=== PATIENT | male | born 1950 | race Caucasian/White ===

== ENCOUNTER 2023-03-06 21:52 | Observation (INO) | payer OTHER ==
[~2023-03-06] VITALS: Ht 170.2 cm; Wt 71.9 kg
[2023-03-06 22:28] LABS: BASOPHILS ABSOLUTE AUTO 0.06 K/mm3 (0.00-0.23); BASOPHILS PERCENT AUTO 1 % (0-2); EOSINOPHILS ABSOLUTE AUTO 0.17 K/mm3 (0.00-0.68); EOSINOPHILS PERCENT AUTO 2 % (0-6); Hematocrit 43.9 % (37.0-53.0); Hemoglobin 14.7 g/dL (13.5-17.5); IMMATURE GRAN ABSOLUTE AUTO 0.05 K/mm3 (0.00-0.10); IMMATURE GRAN PERCENT AUTO 1 % (0-1); LYMPHOCYTES PERCENT AUTO 12 % (21-46); MONOCYTES ABSOLUTE AUTO 0.83 K/mm3 (0.16-1.47); MONOCYTES PERCENT AUTO 9 % (4-13); Mean Corpuscular HGB 29.9 pg (26.0-34.0); Mean Corpuscular HGB Conc 33.5 g/dL (31.5-36.5); Mean Corpuscular Volume 89 fL (80-100); Mean Platelet Volume 10.5 fL (9.1-12.4); NEUTROPHILS ABSOLUTE AUTO 7.18 K/mm3 (1.96-9.15); NEUTROPHILS PERCENT AUTO 77 % (41-73); Platelet Count 232 K/mm3 (150-400); RDW Standard Deviation 42.4 fL (35.1-46.3); Red Blood Cell Count 4.91 M/mm3 (4.30-5.90); White Blood Cell Count 9.39 K/mm3 (4.00-11.30)
[2023-03-06 22:42] LABS: Albumin, Blood 3.4 g/dL (3.4-5.0); Albumin/Globulin Ratio 0.8 (0.8-1.8); Bilirubin, Total 0.3 mg/dL (0.1-1.0); Bun/Creatinine Ratio 14.5 (12.0-20.0); Calcium, Blood 8.8 mg/dL (8.5-10.1); Creatinine, Blood 0.9 mg/dL (0.60-1.20); Globulin, Blood 4.2 g/dL (2.2-4.0); Potassium, Blood 4.1 mmol/L (3.5-5.5); Total Protein, Blood 7.6 g/dL (6.4-8.2)
[2023-03-07 02:47] VITALS: BP 115/97
[2023-03-07] MEDS ORDERED: METO50ER PO (02:51)
[2023-03-07] MEDS ORDERED: Prinivil10 MG PO (02:52)
[2023-03-07] MEDS ORDERED: Prednisone10 MG PO (02:53)
[2023-03-07] MEDS ORDERED: Zocor20 MG PO (02:53)
[2023-03-07] MEDS ORDERED: CENTRUM SILVER1 EAC2 PO (02:54)
[2023-03-07] MEDS ORDERED: Aspir 8181 MG PO (02:54)
[2023-03-07] MEDS ORDERED: ALBU90OI INH (02:55)
[2023-03-07] MEDS ORDERED: STIOLTO RESPIMAT4 G1 INH (02:56)
[2023-03-07 03:17] LABS: BASOPHILS ABSOLUTE AUTO 0.03 K/mm3 (0.00-0.23); BASOPHILS PERCENT AUTO 0 % (0-2); EOSINOPHILS ABSOLUTE AUTO 0.01 K/mm3 (0.00-0.68); EOSINOPHILS PERCENT AUTO 0 % (0-6); Hematocrit 42.6 % (37.0-53.0); Hemoglobin 14.2 g/dL (13.5-17.5); IMMATURE GRAN ABSOLUTE AUTO 0.04 K/mm3 (0.00-0.10); IMMATURE GRAN PERCENT AUTO 0 % (0-1); LYMPHOCYTES ABSOLUTE AUTO 0.35 K/mm3 (0.84-5.20); LYMPHOCYTES PERCENT AUTO 3 % (21-46); MONOCYTES ABSOLUTE AUTO 0.11 K/mm3 (0.16-1.47); MONOCYTES PERCENT AUTO 1 % (4-13); Mean Corpuscular HGB 29.6 pg (26.0-34.0); Mean Corpuscular HGB Conc 33.3 g/dL (31.5-36.5); Mean Corpuscular Volume 89 fL (80-100); Mean Platelet Volume 10.3 fL (9.1-12.4); NEUTROPHILS ABSOLUTE AUTO 11.26 K/mm3 (1.96-9.15); NEUTROPHILS PERCENT AUTO 95 % (41-73); Platelet Count 220 K/mm3 (150-400); RDW Coefficient Variation 12.9 % (11.7-14.2); RDW Standard Deviation 42.4 fL (35.1-46.3); Red Blood Cell Count 4.79 M/mm3 (4.30-5.90)
[2023-03-07 03:38] LABS: Albumin, Blood 3.4 g/dL (3.4-5.0); Albumin/Globulin Ratio 0.8 (0.8-1.8); Bilirubin, Total 0.3 mg/dL (0.1-1.0); Bun/Creatinine Ratio 14.2 (12.0-20.0); Calcium, Blood 8.9 mg/dL (8.5-10.1); Creatinine, Blood 0.78 mg/dL (0.60-1.20); Globulin, Blood 4.1 g/dL (2.2-4.0); Magnesium, Blood 2.1 mg/dL (1.6-2.4); Potassium, Blood 3.8 mmol/L (3.5-5.5); Total Protein, Blood 7.5 g/dL (6.4-8.2)
--- NOTE | 2023-03-07 06:02 | NUR ---
SHIFT SUMMARY REPORT FROM ED RN- PT BROUGHT TO ROOM VIA WC- SISTER IN ROOM- PT AMBULATED TO BR WITHOUT PROBLEMS- ADMIT ASSESSMENT DONE- INFUSED AZITHROMYCIN AND FOLIC ACID AND THIAMINE WITHOUT PROBLEMS, BED LOW POSITION, CALL LIGHT WITHIN REACH
[2023-03-07 08:31] VITALS: BP 130/62
--- NOTE | 2023-03-07 09:00 | NUR ---
PT DENIES ANY INFLAMMABLES IN POSESSION. MIN NECK PN R/T PINCHED NERVE PER PT. DENIES CHEST PAIN, OR PRESSURE. NO TELE. H/R REG, NO MURMUR NOTED. LUGS CLEAR UPPER, LOWER IS MODERATELY COARSE, ON R.A. RESP EASY, UNLABORED AT REST. BT X4 VOIDS INCEPENDANT TO BATHROOM. BED IN LOW POSITION, CALL LITE IN REACH, CALLS APPROP
[2023-03-07] MEDS ORDERED: AZIT250 PO (12:16)
[2023-03-07] MEDS ORDERED: ALBU2.5V5 INH (12:20)
[2023-03-07] MEDS ORDERED: LACT PO (15:14)
--- NOTE | 2023-03-07 15:42 | NUR ---
DISCHARGE REVIEWED WITH PT AND SISTER. PT VERBALIZED UNDERSTANDING MEDS AND INSTRUCT. SISTER PICKED UP MEDS ALREADY. IV PULLED INTACT. NO TELE . WHEELED TO DOOR BY AIDE AT 1530
[2023-03-08] MEDS ORDERED: HYDHCL25 PO (17:56)
== END 2023-03-07 15:34 | disposition home or self-care (01) ==
LOC: ER 21:52 → MEDS 21:53
PROVIDERS: Emergency Medicine; ADMIT Student in an Organized Health Care Education/Training Program
DX: J44.1 Chronic obstructive pulmonary disease with (acute) exacerbation (principal); R77.8 Other specified abnormalities of plasma proteins; I25.10 Atherosclerotic heart disease of native coronary artery without angina pectoris; F17.210 Nicotine dependence, cigarettes, uncomplicated; F10.20 Alcohol dependence, uncomplicated; F12.90 Cannabis use, unspecified, uncomplicated; R91.8 Other nonspecific abnormal finding of lung field; M54.2 Cervicalgia; G89.29 Other chronic pain; Z66 Do not resuscitate; I25.2 Old myocardial infarction
CPT/HCPCS: 36415; 71045; 80053; 83735; 84484; 85025; 93005; 93010; 94640; 94644; 94664; 94760; 96365; 96367; 96368; 96372; 96374; 99285-25; A9270; G0378; J0456; J1650; J2930; J3411; J7050; J7512

== ENCOUNTER 2023-06-06 13:28 | Inpatient (IN) | payer OTHER ==
[~2023-06-06] VITALS: Ht 177.8 cm; Wt 74.8 kg
[~2023-06-06 13:28] MED LIST: ALBU2.5V5 INH; ALBU90OI INH; AZIT250 PO; Aspir 8181 MG PO; CENTRUM SILVER1 EAC2 PO; HYDHCL25 PO; LACT PO; METO100ER PO; PRED5 PO; Prinivil10 MG PO; STIOLTO RESPIMAT4 G1 INH; Zocor20 MG PO
[2023-06-06 14:29] LABS: BASOPHILS ABSOLUTE AUTO 0.06 K/mm3 (0.00-0.23); BASOPHILS PERCENT AUTO 1 % (0-2); EOSINOPHILS ABSOLUTE AUTO 0.04 K/mm3 (0.00-0.68); EOSINOPHILS PERCENT AUTO 0 % (0-6); Hematocrit 46.7 % (37.0-53.0); Hemoglobin 15.3 g/dL (13.5-17.5); IMMATURE GRAN ABSOLUTE AUTO 0.04 K/mm3 (0.00-0.10); IMMATURE GRAN PERCENT AUTO 0 % (0-1); LYMPHOCYTES ABSOLUTE AUTO 0.79 K/mm3 (0.84-5.20); LYMPHOCYTES PERCENT AUTO 7 % (21-46); MONOCYTES ABSOLUTE AUTO 1.14 K/mm3 (0.16-1.47); MONOCYTES PERCENT AUTO 10 % (4-13); Mean Corpuscular HGB 28.7 pg (26.0-34.0); Mean Corpuscular HGB Conc 32.8 g/dL (31.5-36.5); Mean Corpuscular Volume 88 fL (80-100); Mean Platelet Volume 10.4 fL (9.1-12.4); NEUTROPHILS ABSOLUTE AUTO 8.91 K/mm3 (1.96-9.15); NEUTROPHILS PERCENT AUTO 81 % (41-73); Platelet Count 205 K/mm3 (150-400); RDW Coefficient Variation 13.2 % (11.7-14.2); RDW Standard Deviation 42.5 fL (35.1-46.3); Red Blood Cell Count 5.33 M/mm3 (4.30-5.90); White Blood Cell Count 10.98 K/mm3 (4.00-11.30)
[2023-06-06 14:38] LABS: Albumin, Blood 3.3 g/dL (3.4-5.0); Albumin/Globulin Ratio 0.8 (0.8-1.8); Bilirubin, Total 0.2 mg/dL (0.1-1.0); Bun/Creatinine Ratio 13.7 (12.0-20.0); Calcium, Blood 8.8 mg/dL (8.5-10.1); Creatinine, Blood 1.02 mg/dL (0.60-1.20); Globulin, Blood 4.1 g/dL (2.2-4.0); Potassium, Blood 4.5 mmol/L (3.5-5.5); Total Protein, Blood 7.4 g/dL (6.4-8.2)
--- NOTE | 2023-06-06 19:12 | NUR ---
ADMISSION NOTE: PATIENT ARRIVES TO ROOM AT AROUND 1850 FROM ED c DX'S OF COPD EXCACERBATION. BEDSIDE REPORT GIVEN TO LIDA ARAUJO RN.
[2023-06-06 19:22] VITALS: BP 162/64
[2023-06-06 19:37] LABS: Influenza A, PCR NEGATIVE (NEGATIVE); Influenza B, PCR NEGATIVE (NEGATIVE); Resp Syncytial Virus, PCR NEGATIVE (NEGATIVE); SARS-Cov-2 (COVID-19) PCR, MMC NEGATIVE (NEGATIVE)
[2023-06-06 19:54] LABS: Adenovirus Not Detected (NOT DETECT); Bordetella pertussis Not Detected (NOT DETECT); Chlamydophila pneumoniae Not Detected (NOT DETECT); Coronavirus 229E Not Detected (NOT DETECT); Coronavirus HKU1 Not Detected (NOT DETECT); Coronavirus NL63 Not Detected (NOT DETECT); Coronavirus OC43 Not Detected (NOT DETECT); Human Metapneumovirus Not Detected (NOT DETECT); Human Rhinovirus/Enterovirus Not Detected (NOT DETECT); Influenza A/2009-H1 Not Detected (NOT DETECT); Influenza A/H1 Not Detected (NOT DETECT); Influenza A/H3 Not Detected (NOT DETECT); Influenza B Not Detected (NOT DETECT); Mycoplasma pneumoniae Not Detected (NOT DETECT); Parainfluenza Virus 1 Not Detected (NOT DETECT); Parainfluenza Virus 2 Not Detected (NOT DETECT); Parainfluenza Virus 3 Not Detected (NOT DETECT); Parainfluenza Virus 4 Not Detected (NOT DETECT); Respiratory Syncytial Virus Not Detected (NOT DETECT); SARS-Cov-2 (COVID-19), BioFire Not Detected (NOT DETECT)
[2023-06-07] MEDS ORDERED: TRAM50 PO (03:30)
[2023-06-07] MEDS ORDERED: ONELAX FIBER T368 GM PO (03:31)
[2023-06-07] MEDS ORDERED: ASMANEX HFA13 G4 INH (03:32)
[2023-06-07] MEDS ORDERED: DICLOFENAC SODI50 GM TOP (03:36)
[2023-06-07 04:11] VITALS: BP 127/59
--- NOTE | 2023-06-07 04:55 | NUR ---
SHIFT SUMMARY/ADMISSION NOTE NEW PATIENT ARRIVED TO UNIT AT 1855 AT SHIFT CHANGE. PATIENT ORIENTED TO UNIT, ROOM, AND CALL LIGHT FUNCTION. A/Ox4, PLEASANT/TALKATIVE. DENIES PAIN, STATES HE IS HAVING ROUND OF SOB/DIFF BREATHING EPISODE, STATES "IT'S BEEN GETTING WORSE AND MORE FREQUENT." PATIENT STATES REGULARLY SMOKES 2 PACKS PER DAY. EXPRESSED RELIEF OF SOB AFTER BEING ON 1.5L O2 VIA NC, SATS IN LOW 90s. ON TELE, SR 90 TO LOW 100s. MOSTLY INDEPENDENT IN ROOM. NO ACUTE CHANGES NOTED OVERNIGHT. BED LOCKED AND IN LOWEST POSITION, CALL LIGHT WITHIN REACH.
[2023-06-07 05:40] LABS: BASOPHILS ABSOLUTE AUTO 0.01 K/mm3 (0.00-0.23); BASOPHILS PERCENT AUTO 0 % (0-2); EOSINOPHILS PERCENT AUTO 0 % (0-6); Hematocrit 41.6 % (37.0-53.0); Hemoglobin 13.9 g/dL (13.5-17.5); IMMATURE GRAN ABSOLUTE AUTO 0.04 K/mm3 (0.00-0.10); IMMATURE GRAN PERCENT AUTO 0 % (0-1); LYMPHOCYTES ABSOLUTE AUTO 0.41 K/mm3 (0.84-5.20); LYMPHOCYTES PERCENT AUTO 4 % (21-46); MONOCYTES ABSOLUTE AUTO 0.11 K/mm3 (0.16-1.47); MONOCYTES PERCENT AUTO 1 % (4-13); Mean Corpuscular HGB 28.8 pg (26.0-34.0); Mean Corpuscular HGB Conc 33.4 g/dL (31.5-36.5); Mean Corpuscular Volume 86 fL (80-100); Mean Platelet Volume 10.7 fL (9.1-12.4); NEUTROPHILS ABSOLUTE AUTO 9.13 K/mm3 (1.96-9.15); NEUTROPHILS PERCENT AUTO 94 % (41-73); Platelet Count 207 K/mm3 (150-400); RDW Coefficient Variation 13.3 % (11.7-14.2); RDW Standard Deviation 41.5 fL (35.1-46.3); Red Blood Cell Count 4.83 M/mm3 (4.30-5.90)
[2023-06-07 05:57] LABS: Bun/Creatinine Ratio 18.3 (12.0-20.0); Calcium, Blood 8.7 mg/dL (8.5-10.1); Creatinine, Blood 1.04 mg/dL (0.60-1.20); Potassium, Blood 4.5 mmol/L (3.5-5.5)
[2023-06-07 07:18] VITALS: BP 151/68
[2023-06-07 16:04] VITALS: BP 128/70
--- NOTE | 2023-06-07 18:11 | NUR ---
SHIFT SUMMRY: PATIENT IS A/OX4. ANXIOUS AT TIMES, PLEASANT AND COOPERATIVE c CARE PROVIDED. PATIENT REPORTS DRINKS 4-5 BEERS AND SMOKE 2 PACKS A DAY. PER PATIENT "LAST ALCOHOL INTAKE WAS THURSDAY NIGHT AND I USUALLY START DRINKING AROUND 8 O'CLOCK AT NIGHT." VISIBLE TREMORS TO BUE'S. CIWA SCORE OF 5. PATIENT REPORTS SOB c AMBULATIONS AND OT EPISODE OF "STABBING PAIN TO CHEST WHEN I TRIED TO GET OOB AND WENT AWAY". PER DRY KILN FEEDER NO CHANGES c RHYTHM AND RATE, HAS BEEN CONSISTENT 100-110'S THIS SHIFT. VITAL SIGNS REVIEWED. PATIENT LUNGS HAS INSP WHEEZY, TIGHT AND DIM T/O TO AUSCULTATION. PATIENT STILL ON 2L OF O2 VIA NC c SPO2 RANGES 92-94%. PATIENT RECEIVED PRN AND SCHEDULED BREATHING TX ADMINISTERED BY RT. PATIENT AMBULATES TO BATHROOM INDPENDENTLY. PATIENT RECEIVED SCHEDULED MEDS PER EMAR. PIV TO LAC SALINE LOCKED. PATIENT HAD FAMILY MEMBERS VISITING T/O THE DAY. PATIENT IS EATING AND DRINKING WELL. SEIZURE PADS PRECAUTION IN PLACED TO BED SIDE RAILS. PIV TO LAC SALINE LOCKED. CALL LIGHT IN REACH.
[2023-06-07 19:47] VITALS: BP 141/68
--- NOTE | 2023-06-08 04:13 | NUR ---
SHIFT SUMMARY PATIENT A/0x4, COOPERATIVE WITH ALL CARES. WITHOUT C/O PAIN NOR DISCOMFORT. DENIES N/V. CONTINUES TO C/O SOB WHEN AMBULATING TO BATHROOM. ENCOURAGED PATIENT TO USE URINAL. CONTINUES ON TELE, ST LOW 100s. MOSTLY INDEPENDANT IN ROOM. RECEIVED PRN LIBRIUM 25MG x1 THIS SHIFT FOR CIWA OF 8. CIWA THIS AM IS 3, SLEPT BETTER, LESS HAND TREMORS. BED LOCKED AND IN LOWEST POSITION, CALL LIGHT WITHIN REACH.
[2023-06-08 04:20] VITALS: BP 145/71
[2023-06-08 05:16] LABS: Bun/Creatinine Ratio 28.2 (12.0-20.0); Calcium, Blood 8.8 mg/dL (8.5-10.1); Creatinine, Blood 1.03 mg/dL (0.60-1.20); Potassium, Blood 4.5 mmol/L (3.5-5.5)
[2023-06-08 07:34] VITALS: BP 151/79
[2023-06-08 15:18] VITALS: BP 153/70
--- NOTE | 2023-06-08 17:34 | NUR ---
SHIFT SUMMARY PT AOX4, INDEPENDENT TO THE BATHROOM. MEDICATED FOR SLIGHT ANXIETY THIS MORNING. SEE CIWA SCORING IN THE CHART, HE DID NOT QUALIFY FOR MEDICATIONS PER HIS SCORE. HIS SISTER IS AT THE BS MOST OF THE SHIFT. PT IS COOPERATIVE AND MAKES HIS NEEDS KNOWN. PT DOES GET SOB WITH EXERTION BUT NO COMPLAINTS AT REST. CALL LIGHT WITHIN REACH, BED IN THE LOWEST POSITION. WILL REPORT TO ONCOMING NURSE.
[2023-06-08 19:21] VITALS: BP 152/74
[2023-06-09 02:49] VITALS: BP 121/64
--- NOTE | 2023-06-09 04:57 | NUR ---
SHIFT SUMMARY PATIENT IS ALERT AND ORIENTED. PATIENT HAS HAD NO ACUTE EVENTS THIS SHIFT. VITAL SIGNS REVIEWED. PATIENT HAS REMAINED ON 3L NC THIS SHIFT. PATIENT REMAINS SOB WITH EXERTION. PATIENT HAS TREMORS AT BASELINE WITH STERIOD USE. PATIENT HAS NOT COMPLAINED OF PAIN, NAUSEA OR VOMITTING THIS SHIFT. PATIENT HAS SLEPT AND RESTED MOST OF SHIFT.
[2023-06-09 07:07] LABS: Bun/Creatinine Ratio 31.5 (12.0-20.0); Calcium, Blood 8.5 mg/dL (8.5-10.1); Creatinine, Blood 0.95 mg/dL (0.60-1.20); Potassium, Blood 4.8 mmol/L (3.5-5.5)
[2023-06-09 07:34] VITALS: BP 128/66
[2023-06-09 15:53] VITALS: BP 129/68
--- NOTE | 2023-06-09 16:33 | NUR ---
SHIFT SUMMARY PT AOX4, SBA TO THE BR. KAEL COW GIVEN TO PT TO ATTEMPT A BM. NO COMPLAINTS OR ACUTE EVENTS THIS SHIFT. PT HAS HAD FAMILY AT THE BS ALL SHIFT. POSSIBLE DISCHARGE TOMORROW. CALL LIGHT WITHIN REACH, BED IN THE LOWEST POSITION. WILL REPORT TO ONCOMING NURSE.
[2023-06-09 19:39] VITALS: BP 132/83
[2023-06-10 04:31] VITALS: BP 124/69
--- NOTE | 2023-06-10 06:49 | NUR ---
SHIFT SUMMARY PT SITTING UP IN BED DURING BEDSIDE REPORT- CAREGIVER AT BEDSIDE- PT ON 2L VIA NC- PT REPORTED FEELING SOB WHILE AMBULATING TO BR- INCREASED OXYGEN TO 3L- PT REPORTED FEELING BETTER WITH 3L- PT SLEPT T/O NIGHT WITHOUT PROBLEMS ENCOURAGED PT TO REST-
[2023-06-10 07:41] VITALS: BP 155/79
[2023-06-10] MEDS ORDERED: PRED5 PO (15:19)
[2023-06-10] MEDS ORDERED: PRED20 PO (15:20)
[2023-06-10] MEDS ORDERED: AZIT250 PO (15:21)
--- NOTE | 2023-06-10 16:01 | NUR ---
PT DISCHARGED FROM THE UNIT. IV REMOVED. DISHCARGE INSTRUCTIONS REVIEWED. JUAN ALBERTO BROUGHT O2. LEFT UNIT VIA WHEEL CHAIR. CAREGIVER TO DRIVE HOME. MEDICATIONS FAXED TO PHARMACY.
== END 2023-06-10 16:35 | disposition home health service (06) | DRG 191 ==
LOC: ER 13:28 → MEDS 18:45
PROVIDERS: Emergency Medicine; Family Medicine; ADMIT Family Medicine
DX: J44.1 Chronic obstructive pulmonary disease with (acute) exacerbation (principal); E87.1 Hypo-osmolality and hyponatremia; J43.9 Emphysema, unspecified; F17.210 Nicotine dependence, cigarettes, uncomplicated; I25.10 Atherosclerotic heart disease of native coronary artery without angina pectoris; Z66 Do not resuscitate; I10 Essential (primary) hypertension; R25.1 Tremor, unspecified; R77.8 Other specified abnormalities of plasma proteins; F12.90 Cannabis use, unspecified, uncomplicated; F10.10 Alcohol abuse, uncomplicated; R07.9 Chest pain, unspecified; Z91.148 Patient's other noncompliance with medication regimen for other reason; Z92.3 Personal history of irradiation; Z71.6 Tobacco abuse counseling; Z11.52 Encounter for screening for COVID-19; I25.2 Old myocardial infarction; Z85.118 Personal history of other malignant neoplasm of bronchus and lung; Z98.890 Other specified postprocedural states; Z98.61 Coronary angioplasty status; Z79.899 Other long term (current) drug therapy; Z79.52 Long term (current) use of systemic steroids; Z71.41 Alcohol abuse counseling and surveillance of alcoholic; Z79.82 Long term (current) use of aspirin; Z79.51 Long term (current) use of inhaled steroids; Z79.2 Long term (current) use of antibiotics
CPT/HCPCS: 0202U; 0241U; 36415; 71045; 80048; 80053; 83880; 84484; 85025; 93005; 93010; 94640; 94644; 94664; 94760; 94761; 99285-25; A9270; J1650; J2920; J2930; J7512

== ENCOUNTER 2024-01-14 10:37 | Inpatient (IN) | payer OTHER ==
[~2024-01-14] VITALS: Ht 177.8 cm; Wt 76.2 kg
[2024-01-14] VITALS (32 sets, daily range): BP systolic 73–175; BP diastolic 50–121
[~2024-01-14 10:37] MED LIST changes: +ASMANEX HFA13 G4 INH; +Acetaminophen650 M1 PO; +DICLOFENAC SODI50 GM TOP; +GABA300 PO; +ONELAX FIBER T368 GM PO; +PRED20 PO; +TRAM50 PO
[2024-01-14] MEDS ORDERED: Naloxone HCl 1MG / ML 2ML SYR ONE (10:40)
[2024-01-14] MEDS ORDERED: Naloxone HCl 1MG / ML 2ML SYR IV ONE (10:40)
[2024-01-14] MEDS ORDERED: Ipratropium Bromide INH 0.02% 0.5 mg/2.5ML Vial INH SCH (10:50)
[2024-01-14] MEDS ORDERED: MethylPREDNISolone Sod Succ 125 MG Vial IV ONE (10:50)
[2024-01-14] MEDS ORDERED: Albuterol 2.5 MG/3 ML VIAL INH ONE ×2 (10:50→13:45)
[2024-01-14] MEDS ORDERED: NS 1,000 ML IV SCH ×2 (10:50→19:50)
[2024-01-14 10:55] LABS: Chloride (POC) 99 mmol/L (98-108); Creatinine (POC) 1.3 mg/dL (0.8-1.3); Glucose (ISTAT POC) 188 mg/dL (70-99); Hemoglobin (POC) 13.9 g/dL (13.5-17.5); Potassium (POC) 4.9 mmol/L (3.5-5.5); Sodium (POC) 135 mmol/L (135-148); Total CO2 (POC) 31 mmol/L (21-32)
[2024-01-14 11:00] LABS: PCO2 Arterial > 105 mmHg (35-45); PO2 Arterial 80.3 mmHg (80-100); pH Blood Arterial 6.92 (7.35-7.45)
[2024-01-14 11:06] LABS: Hematocrit 41.6 % (37.0-53.0); Hemoglobin 12.4 g/dL (13.5-17.5); Mean Corpuscular HGB 29.7 pg (26.0-34.0); Mean Corpuscular HGB Conc 29.8 g/dL (31.5-36.5); Mean Platelet Volume 10.8 fL (9.1-12.4); Platelet Count 260 K/mm3 (150-400); RDW Coefficient Variation 12.5 % (11.7-14.2); RDW Standard Deviation 46.3 fL (35.1-46.3); Red Blood Cell Count 4.17 M/mm3 (4.30-5.90); White Blood Cell Count 17.36 K/mm3 (4.00-11.30)
[2024-01-14 11:10] LABS: Mean Corpuscular Volume 100 fL (80-100)
[2024-01-14] MEDS ORDERED: Vancomycin HCL 1,500 MG in NS 265 ML IV ONE (11:20)
[2024-01-14 11:25] LABS: Albumin, Blood 3.1 g/dL (3.4-5.0); Albumin/Globulin Ratio 0.8 (0.8-1.8); Bilirubin, Total 0.2 mg/dL (0.1-1.0); Calcium, Blood 8.5 mg/dL (8.5-10.1); Globulin, Blood 4.1 g/dL (2.2-4.0); Magnesium, Blood 2.1 mg/dL (1.6-2.4); Total Protein, Blood 7.2 g/dL (6.4-8.2)
[2024-01-14] MEDS ORDERED: Piperacillin/Tazobactam Sod 3.375 GM in NS 100 ML IV ONE (11:25)
[2024-01-14 11:28] LABS: BASOPHILS PERCENT MAN 0 % (0-2); EOSINOPHILS PERCENT MAN 0 % (0-6); LYMPHOCYTES % ATYPICAL MANUAL 3 % (0-0); LYMPHOCYTES ABSOLUTE MAN 2.95 K/mm3 (0.84-5.20); LYMPHOCYTES PERCENT MAN 14 % (21-46); MONOCYTES ABSOLUTE MAN 1.21 K/mm3 (0.16-1.47); MONOCYTES PERCENT MAN 7 % (4-13); NEUTROPHILS ABSOLUTE MAN 13.19 K/mm3 (1.96-9.15); SEG NEUTROPHILS PERCENT MAN 76 % (41-73); TOTAL CELLS COUNTED 100
[2024-01-14 11:54] LABS: Influenza A, PCR NEGATIVE (NEGATIVE); Influenza B, PCR NEGATIVE (NEGATIVE); Resp Syncytial Virus, PCR NEGATIVE (NEGATIVE); SARS-Cov-2 (COVID-19) PCR, MMC NEGATIVE (NEGATIVE)
[2024-01-14] MEDS ORDERED: Sodium Bicarb 8.4% 1 MEQ/ML 50 ML Vial IV STA (12:24)
[2024-01-14] MEDS ORDERED: Ipratropium/Albuterol SulF 2.5-0.5MG/3 ML Amp INH SCH (12:45)
[2024-01-14] MEDS ORDERED: FentaNYL Citrate 50 MCG/ML 2 ML Injection IV PRN (12:45)
[2024-01-14] MEDS ORDERED: Ondansetron HCl 2 MG / ML 2ML Vial IV PRN (12:45)
[2024-01-14] MEDS ORDERED: NS 250 ML IV PRN (14:15)
[2024-01-14] MEDS ORDERED: Cefepime HCl 2,000 MG in NS 100 ML IV SCH (16:00)
[2024-01-14] MEDS ORDERED: MethylPREDNISolone Sod Succ 125 MG Vial IV SCH (18:00)
[2024-01-14 18:15] LABS: PCO2 Venous 101 mmHg (38-42); pH Blood Venous 7.15 (7.34-7.37)
[2024-01-14 18:16] LABS: Base Excess Venous 6.6 mmol/L; Bicarbonate Venous 26.7 mmol/L (24.0-30.0)
--- NOTE | 2024-01-14 18:27 | NUR ---
The pt became more agitated, pulling at the bipap and unable to comply with directions, even with family and caregiver assisting at bedside. VBG results show the pt still needs the bipap. emergency medicine medical director Richy talked with family at bedside who strongly approve of pt keeping the bipap on, with restraints as required in order to allow his respiratory status time to improve. Dr. Maynard called and orders for precedex gtt and restraints with bipap, transfer to ICU. Family is in agreement.
[2024-01-14] MEDS ORDERED: Propofol 10mg/ml 20 ml Vial (Procedural) IV ONE (18:44)
[2024-01-14] MEDS ORDERED: Rocuronium Bromide 10 MG/ML 5ML Injection IV ONE (18:44)
[2024-01-14] MEDS ORDERED: NS 500 ML IV ONE (19:50)
--- NOTE | 2024-01-14 23:15 | NUR ---
HAVE PLACED PRECEDEX TO STANDBY SECONDARY TO BLOOD PRESSURES DECREASE. BLOOD PRESSURES HAVE SINCE IMPROVED TO WNL. PT DOES AWAKEN. ASKS FOR WATER. PT IN NO APPARENT DISTRESS AT THIS TIME.
[2024-01-15] VITALS (56 sets, daily range): BP systolic 90–169; BP diastolic 44–114
--- NOTE | 2024-01-15 00:42 | NUR ---
PT REMAINS OFF PRECEDEX SECONDARY TO DECREASING BLOOD PRESSURES. PT HAS HAD TIMES WHEN HE BECOMES ANXIOUS AND IS ABLE TO CALM WITH REASSURANCE. HAS BEEN ABLE TO KEEP BIPAP MASK ON. MAINTAINS SATURATIONS > 90 PERCENT.
[2024-01-15] MEDS ORDERED: Vancomycin HCL 1,000 MG in NS 100 ML IV SCH (01:00)
--- NOTE | 2024-01-15 02:23 | NUR ---
ASSUMPTION OF CARE: ASSUMED CARE OF PT AT 0100; REPORT RECIEVED FROM DAVID GALLEGOS. PT IN BED, A&O X 4 AND COOPERATIVE WITH CARE. CURRENTLY PT REMAIN ON BIPAP WITH SETTINGS 18/8, FIO2 35% AND LUNG SOUNDS ARE CLEAR THROUGHOUT WITH DIM BASES; PT DECLINES SOB AT THIS TIME. SR ON MONITOR WITH HR 70-80'S AND SBP 100'S; PT DENIES CHEST PAIN AT THIS TIME. ABD SOFT, ROUND AND NON-TENDER; HYPOACTIVE BOWEL TONES NOTED. PT NPO AT THIS TIME, BUT PASSED SWALLOW EVAL AND TOLERATING SMALL SIPS OF WATER. PT CONTINENT AT BASELINE WITH ATTENDS IN PLACE. BUE SCATTERED BRUISING AND SKIN TEAR TO R. ELBOW WITH BANDAGE IN PLACE. BLE COOL BUT CAP REFILL < 3 SECONDS. PT REPORTS NO PAIN AT THIS TIME. PT'S STEP-DAUGHTER, DUNG, CALLED AND THIS RN GAVE REPORT OF PT'S CURRENT STATUS AND TREATMENT PLAN. PT NOW RESTING AND APPEARS COMFORTABLY; BED IN LOWEST POSITION AND CALL LIGHT IN REACH.
[2024-01-15 04:30] LABS: Hematocrit 31.7 % (37.0-53.0); Hemoglobin 9.9 g/dL (13.5-17.5); Mean Corpuscular HGB 30.2 pg (26.0-34.0); Mean Corpuscular HGB Conc 31.2 g/dL (31.5-36.5); Mean Corpuscular Volume 97 fL (80-100); Platelet Count 154 K/mm3 (150-400); RDW Coefficient Variation 12.8 % (11.7-14.2); RDW Standard Deviation 45.5 fL (35.1-46.3); Red Blood Cell Count 3.28 M/mm3 (4.30-5.90); White Blood Cell Count 10.02 K/mm3 (4.00-11.30)
[2024-01-15 04:49] LABS: Bun/Creatinine Ratio 23.8 (12.0-20.0); Calcium, Blood 7.5 mg/dL (8.5-10.1); Creatinine, Blood 1.22 mg/dL (0.60-1.20); Potassium, Blood 4.6 mmol/L (3.5-5.5)
--- NOTE | 2024-01-15 06:05 | NUR ---
SHIFT SUMMARY: NO ACUTE CHANGES OVERNIGHT; PT REMAINS ON BIPAP WITH SETTINGS 18/8, FIO2 35%. VSS THROUGHOUT THE SHIFT. PRECEDEX GTT PLACED ON SB AROUND 0200. PT CONTINUES TO REMAIN A&O X 4, PLEASANT AND COOPERATIVE WITH CARE. NS @ 100 MLS/HR. BED LOWERED, CALL LIGHT IN REACH.
--- NOTE | 2024-01-15 07:54 | NUR ---
[place] of Care: Care assumed at 0700hr. Patient a/o x4. Denies pain or discomfort, dyspnea or SOB. VSS. On BiPAP 18/8/35% at shift change. Then placed on 3L/NC (baseline), tolerating NC without difficulty. No s/s of dyspnea or SOB. Powerglide to BRYCE patent and intact. Peripheral IV to lt AC removed (not patent). Using urinal to void but denies need to void at this time. Tolerating small sips of PO water without difficulty. Plan to get patient out of bed to chair if he continues to tolerate being off the BiPAP mask. Call light in reach, makes needs known. Will continue to monitor.
[2024-01-15] MEDS ORDERED: Lisinopril 10 MG Tab PO SCH (09:00)
[2024-01-15] MEDS ORDERED: Metoprolol Succinate 50 MG TABCR PO SCH (09:00)
[2024-01-15] MEDS ORDERED: Aspirin 81 MG TabEC PO SCH (09:00)
[2024-01-15] MEDS ORDERED: HyDROXyzine HCl 25 MG Tab PO PRN (09:00)
[2024-01-15] MEDS ORDERED: Gabapentin 300 MG Cap PO SCH (09:00)
[2024-01-15] MEDS ORDERED: Enoxaparin 40 MG/0.4 ML SYR SC SCH (09:00)
[2024-01-15] MEDS ORDERED: Acetaminophen 325 MG TABLET PO PRN (09:05)
[2024-01-15] MEDS ORDERED: Mometasone Furoate Inhaler 220 mcg 14 ACT INH SCH (09:10)
--- NOTE | 2024-01-15 18:05 | NUR ---
Shift Summary: No significant changes throughout shift. Patient on NC a 3L throughout most of shift, SpO2 92-95%, VSS. No c/o SOB except for after transferring from recliner to BSC. Patient then placed back on BiPAP mask for approx 1hr. Tolerated BiPAP well and now back on 3LNC. Otherwise transferred from bed to recliner without difficulty. Denies pain or discomfort. Tolerating PO food and fluids without difficulty. Family and caregiver and bedside throught most of day. Call light in reach, makes needs known. Will continue to monitor until report to NOC shift RN.
--- NOTE | 2024-01-15 20:16 | NUR ---
ASSUMPTION OF CARE ASSUMED CARE OF PATIENT AT 1900. PT'S SISTER AND RT AT BEDSIDE. PT A&Ox4, IN IN HIGH FOLWERS FOR A BREATHING TX, PT STATES IT PROVIDED LITTLE RELIEF. PT C/O SOB ON 3L NC SPO2 95-100%. RR 18-22. PT IS OPEN TO TRYING BIPAP TONIGHT WHILE SLEEPING. DENIES CP. LUNG SOUNDS CLEAR AND WITH WHEEZING, DIM IN BASES. PICC TO BRCYE INFUSING NS AT 100ML/HR. HR 90s-100s. SBP 150s. BED LOWERED, CALL LIGHT IN REACH.
[2024-01-16] VITALS (61 sets, daily range): BP systolic 93–165; BP diastolic 43–125
[2024-01-16 01:16] LABS: Vancomycin, Trough 13.5 ug/mL (5.0-10.0)
[2024-01-16 03:58] LABS: BASOPHILS PERCENT AUTO 0 % (0-2); EOSINOPHILS PERCENT AUTO 0 % (0-6); Hemoglobin 9.7 g/dL (13.5-17.5); IMMATURE GRAN ABSOLUTE AUTO 0.06 K/mm3 (0.00-0.10); IMMATURE GRAN PERCENT AUTO 1 % (0-1); LYMPHOCYTES PERCENT AUTO 3 % (21-46); MONOCYTES ABSOLUTE AUTO 0.42 K/mm3 (0.16-1.47); MONOCYTES PERCENT AUTO 4 % (4-13); Mean Corpuscular HGB 30.4 pg (26.0-34.0); Mean Corpuscular HGB Conc 32.3 g/dL (31.5-36.5); Mean Corpuscular Volume 94 fL (80-100); Mean Platelet Volume 10.6 fL (9.1-12.4); NEUTROPHILS ABSOLUTE AUTO 10.93 K/mm3 (1.96-9.15); NEUTROPHILS PERCENT AUTO 93 % (41-73); Platelet Count 159 K/mm3 (150-400); RDW Coefficient Variation 13.1 % (11.7-14.2); RDW Standard Deviation 45.2 fL (35.1-46.3); Red Blood Cell Count 3.19 M/mm3 (4.30-5.90); White Blood Cell Count 11.71 K/mm3 (4.00-11.30)
[2024-01-16 04:27] LABS: Albumin, Blood 2.5 g/dL (3.4-5.0); Albumin/Globulin Ratio 0.8 (0.8-1.8); Bilirubin, Total 0.4 mg/dL (0.1-1.0); Bun/Creatinine Ratio 30.6 (12.0-20.0); Calcium, Blood 7.7 mg/dL (8.5-10.1); Creatinine, Blood 0.88 mg/dL (0.60-1.20); Globulin, Blood 3.2 g/dL (2.2-4.0); Potassium, Blood 4.2 mmol/L (3.5-5.5); Total Protein, Blood 5.7 g/dL (6.4-8.2)
--- NOTE | 2024-01-16 06:37 | NUR ---
SHIFT SUMMARY PT WAS ON BIPAP FOR MOST OF THE NIGHT. BIPAP 18/8/35%. WAS PLACED ON 3L NC A FEW TIMES THIS SHIFT FOR A BREAK FROM THE MASK. PT WILL ASK TO BE PUT BACK ON BIPAP WHEN SOB RETURNS. PT EXPRESSES HE IS MOTIVATED TO WEAR BIPAP BECAUSE IT IS HELPFUL. AT TIMES PT ANXIOUS WHICH INCREASES SOB. LUNG SOUNDS CLEAR WITH EXPIRATORY WHEEZES. SBP 150s. NSR ON MONITOR. SPO2 90-95%. PT ONLY HAD 325ML URINE OUT FOR THIS SHIFT. DAUGHTER RADHA UPDATED ON PT CURRENT STATUS AND TX PLAN. BED LOWERED, CALL LIGHT IN REACH.
[2024-01-16] MEDS ORDERED: LORazepam 2 MG/ML 1ML Injection ONE (08:01)
[2024-01-16] MEDS ORDERED: LORazepam 2 MG/ML 1ML Injection IV PRN (08:05)
[2024-01-16] MEDS ORDERED: Morphine Sulfate 4 MG/1 ML Injection ONE (08:19)
[2024-01-16] MEDS ORDERED: Morphine Sulfate 4 MG/1 ML Injection IV PRN (08:20)
[2024-01-16] MEDS ORDERED: Albuterol 2.5 MG/3 ML VIAL INH PRN (08:25)
[2024-01-16] MEDS ORDERED: propofoL 100 ML IV SCH (08:55)
[2024-01-16] MEDS ORDERED: Psyllium 1 EA Pack PO SCH (09:00)
[2024-01-16] MEDS ORDERED: Multivitamins/Minerals TAB PO SCH (09:00)
[2024-01-16] MEDS ORDERED: Atorvastatin 10 MG Tab PO SCH (09:00)
[2024-01-16] MEDS ORDERED: Albuterol 2.5 MG/3 ML VIAL INH ONE (09:35)
[2024-01-16 09:59] LABS: Source, Urine Foley catheter
[2024-01-16 10:10] LABS: Appearance, Urine Clear (Clear); Bilirubin, Urine Neg (Neg); Blood, Urine 1+ (Neg); Color, Urine Yellow (P-Yellow); Glucose Qualitative, Urine Neg (Neg); Ketones, Urine Neg (Neg); Leukocyte Esterase, Urine Neg (Neg); Nitrite, Urine Neg (Neg); Protein, Urine 2+ (Neg); Specific Gravity, Urine 1.015 (1.003-1.022); Urobilinogen, Urine NORM (Normal)
[2024-01-16 11:02] LABS: Bacteria Mod /hpf
[2024-01-16 11:03] LABS: Mucus Light (0-Heavy); Red Blood Cells, Urine 0-2 /hpf (0-2); Renal Epithelial Rare /hpf (0-Rare); Squamous Epithelial Cells Rare /hpf (Few)
[2024-01-16 11:04] LABS: Granular Casts 0-2 /lpf (0)
--- NOTE | 2024-01-16 11:13 | NUR ---
AM NOTE... ASSUMED CARE OF PT AT 0700, PT WAS ON BIPAP AND SLEEPING WITH SETTINGS AT 18/8 AND 35% WITH O2 SATS>92%. PT WAS IN SR IN THE 60'S-80'S BP STABLE BUT ON THE HYPETENSIVE SIDE. PT HAS DEPENDENT EDEMA TO HIS BILATERAL HANDS. L/S VERY TIGHT T/O WITH SCATTERED WHEEZES AND DIM IN THE BASES. WHEN NOT ON BIPAP HE IS STABLE ON 3L NC WHICH IS HIS BASELINE. BT PRESENT AND HYPOACTIVE. AT THE TIME OF THIS ASSESSMENT THE PT ASKED THIS RN TO TAKE THE MASK OFF. MASK WAS TAKEN OFF AND PT PLACED ON 3L NC WITH O2 SATS>92%. PT WAS SAT UP IN THE BED AND STABLE WHEN THIS RN LEFT THE ROOM. APROX 10MINS LATER THE PT'S CALL LIGHT WENT OFF, THIS RN ENTERED THE ROOM TO FIND THE PT IN RESPIRATORY DISRESS AND ASKING FOR THE URINAL. THIS RN HELPED THE PT WITH THE URINAL ANOTHER RN CAME INTO THE ROOM TO HELP PLACE THE PT BACK ON BIPAP D/T O2 SATS IN THE 70'S. PT WAS VERY ANXIOUS AND RR WAS IN THE 30'S-40'S WITH ACCESSORY MUSCLE USE. PROVIDER WAS CALLED AND ORDERS FOR ATIVAN WERE GIVEN. PT WAS GIVEN 1MG IV ATIVAN. PROVIDER CAME TO THE BEDSIDE TO ASSESS THE PT. WHILE THE PROVIDER WAS AT THE BEDSIDE PT WAS ASKED ABOUT HIS DESIRE FOR INTUBATION, PER THE PT HE WANTED TO BE INTUBATED, PT WAS A&Ox4 AT THIS TIME, EL NICOLE AND THIS RN WERE AT THE BEDSIDE WITH THE PROVIDER AT THE TIME OF THIS CONVERSATION. PER PROVIDER PT COULD HAVE 2MG IV MORPHINE TO HELP WITH AIR HUNGER AND CRITICAL CARE CONSULT WAS PLACED. COREY RN CALLED DR. MONTE TO INFORM HIM OF THE NEW CONSULT AND THE POSSIBLE NEED FOR INTUBATION. AT 0900 DR. MONTE CAME TO THE ROOM TO ASSESS THE PT, PLANS TO INTUBATE THE PT WERE MADE. PT'S SISTER AND PLANNER SCHEDULER WERE AT THE BEDSIDE AND SPOKE WITH DR. MONTE ABOUT INTBUATION AND PLAN OF CARE. 0915: PT WAS GIVEN 20MG IV PROPOFOL. 18: PT WAS GIVEN 80MG IV PROPOFOL. 19: PT WAS GIVEN 50MG IV AQUILES. 21: PT WAS INTUBATED WITH 8.0 AND 24 AT THE GUMS. + ETCO2 ON THE MONITOR SHOWED IN THE 70'S. + BILATERA BREATH SOUNDS HEARD. OG TUBE WAS PLACED AND PLACEMENT VERIFIED BY XRAY. TEMP LAY PLACED AND UA SENT. PROPOFOL DRIP STARTED. WILL CONTINUE TO MONITOR.
[2024-01-16] MEDS ORDERED: Ketamine HCl 100 MG / ML 5ML Vial IV SCH (11:40)
[2024-01-16] MEDS ORDERED: Ketamine HCL 1,000 MG in NS 100 ML IV SCH (11:45)
[2024-01-16] MEDS ORDERED: Hydrogen Peroxide 1.5 % Solution MT SCH (12:00)
[2024-01-16] MEDS ORDERED: Gabapentin 250 MG/5 ML ORAL SYRINGE PT SCH (14:00)
--- NOTE | 2024-01-16 17:37 | NUR ---
SHIFT SUMMARY.... PT WAS INTUBATED THIS AM, PT'S FAMILY AT THE BEDSIDE T/O THIS SHIFT. PT'S VS HAVE BEEN STABLE SINCE INTUBATION. PT'S CURRENT VENT SETTINGS ARE AC/VC:24/400/12/55% WITH O2 SATS>90%. THE ET TUBE WAS 6CM ABOVE THE AMMON PER RADIOLOGY REPORT, PER DR. MONTE THE ET TUBE WAS TO BE ADVANCED 2CM. THIS RN REPORTED THIS TO RT RICKY, RT RICKY WAS IN THE ROOM AND ADVANCED THE ET TUBE FROM 24 TO 26, WHEN THIS OCCURED THE HIGH PRESSURE ALARM STARTED, THE RT THEN PULLED THE ET TUBE BACK TO 25 AT THE TEETH, THE ALARMS STOPPED. CURRENTLY THE ET TUBE IS 25 AT THE TEETH/GUMS. L /S CONTINUE TO BE VERY TIGHT T/O AND VERY DIM IN THE BASES. PT IS ON PROPOFOL AT 50MCG/KG/HR AND KETAMINE DRIP AT 1.5MG/KG/HR WITH A RASS OF 0. OG TUBE IS CLAMED FOR MEDS AT THIS TIME. PT'S LAY IS PATENT AND DRAINING TO GRAVITY, PT HAS BEEN AFEBRILE T/O THIS SHIFT. WILL CONTINUE TO MONITOR UNTIL REPORT IS GIVEN TO ONCOMING RN.
[2024-01-16] MEDS ORDERED: Cetylpyridinium Chloride 1 EA MISC MT SCH (20:00)
[2024-01-17] VITALS (40 sets, daily range): BP systolic 93–141; BP diastolic 51–70
[2024-01-17 04:23] LABS: Hematocrit 29.3 % (37.0-53.0); Hemoglobin 9.3 g/dL (13.5-17.5); Mean Corpuscular HGB Conc 31.7 g/dL (31.5-36.5); Mean Corpuscular Volume 95 fL (80-100); Mean Platelet Volume 10.9 fL (9.1-12.4); Platelet Count 172 K/mm3 (150-400); RDW Coefficient Variation 13.5 % (11.7-14.2); RDW Standard Deviation 46.4 fL (35.1-46.3); White Blood Cell Count 9.85 K/mm3 (4.00-11.30)
[2024-01-17 04:41] LABS: Bun/Creatinine Ratio 27.7 (12.0-20.0); Calcium, Blood 7.8 mg/dL (8.5-10.1); Creatinine, Blood 1.01 mg/dL (0.60-1.20); Magnesium, Blood 1.8 mg/dL (1.6-2.4); Phosphorus, Blood 1.9 mg/dL (2.5-4.9); Potassium, Blood 3.6 mmol/L (3.5-5.5)
[2024-01-17] MEDS ORDERED: Potassium Phosphate Dibasic 15 MM in Dextrose 5% 250 ML IV ONE (05:25)
--- NOTE | 2024-01-17 06:05 | NUR ---
SHIFT SUMMARY: NO ACUTE CHANGES OVERNIGHT; VSS THROUGHOUT THE SHIFT. PT REMAINS INTUBATED AND SEDATED WITH VENT SETTINGS AC/VC 24/400/12/40%. PROPOFOL GTT @ 50 MCG, KETAMINE @ 1.5 MG/KG/HR AND PT RECIEVING KPHOS REPLACEMENT THIS MORNING. BED BATH AND COMPLETE LINEN CHANGE DONE THIS SHIFT. PT'S DAUGHTER, DUNG, UPDATED ON PT'T CURRENT STATUS AND TREATMENT PLAN. WILL REPORT OFF TO ONCOMING RN.
[2024-01-17] MEDS ORDERED: MethylPREDNISolone Sod Succ 125 MG Vial IV SCH (09:00)
[2024-01-17] MEDS ORDERED: Aspirin 81 MG Chew PO SCH (09:00)
--- NOTE | 2024-01-17 09:42 | NUR ---
AM NOTE... ASSUMED CARE OF PT AT 0700. PT IS INTUBATED AND SEDATED. PROPOFOL IS AT 50 MCG/KG/MIN AND KETAMINE IS AT 1.5 MG/KG/HR. PT OPENS EYES IN RESPONSE TO VERBAL STIMULI AND IS ABLE TO SQUEEZE BILATERAL HANDS WHEN ASKED. ETT 8.0, 25 AT TEETH. VENT SETTINGS ARE ACVC 24/400/12/40%. LUNG SOUNDS ARE TIGHT THROUGHOUT, DIM IN THE BASES. SMALL AMOUNT OF RANDALL SPUTUM WHEN SUCTIONED. PT IS IN SINUS ARRYTHMIA, SBP 130-140'S, HR 70-80'S, MAP > 65. DEPENDENT EDEMA NOTED IN BIALTERAL UPPER EXTREMITIES, 2+ PITTING EDEMA IN BILATERAL LOWER EXTREMITIES. CAP REFILL < 3 SECONDS. ABDOMEN IS SOFT TO PALPATION, BOWEL TONES ARE HYPOACTIVE. TEMP LAY IS PATENT AND DRAINING YELLOW FLUID TO GRAVITY. WILL CONTINUE TO MONITOR..
[2024-01-17] MEDS ORDERED: Magnesium Sulf 2 GM/Water 50ML 50 ML IV ONE (12:25)
[2024-01-17 12:54] LABS: Vancomycin, Trough 20.8 ug/mL (5.0-10.0)
--- NOTE | 2024-01-17 17:33 | NUR ---
SHIFT SUMMARY... PATIENT REMAINS INTUBATED AND SEDATED. PROPOFOL REMAINS AT 50 MCG/KG/MIN, KETAMINE WAS INCREASED TO 2 MG/KG/HR DUE TO RESTLESSNESS. SEDATION VACATION INITIATED AT 1100. DURING THIS TIME, PT WAS ABLE TO FOLLOW COMMANDS, NOD APPROPRIATELY TO ANSWER QUESTIONS, AND RECOGNIZE FAMILY IN THE ROOM. VENT SETTINGS ARE ACVC 24/400/12/30%. TUBE FEEDS STARTED AT 133O, RUNNING AT 30MLS/HR PER ORDERS. LAY CATH IS PATENT AND DRAINING URINE TO GRAVITY. PT MAINTAINED ADEQUATE URINE OUTPUT THROUGHOUT SHIFT. PT HAS A WEEPING WOUND TO LT UPPER ARM, CHUX PAD PLACED AROUND IT. WILL CONTINUE TO MONITOR UNTIL REPORT IS GIVEN TO ONCOMING NURSE.
[2024-01-17] MEDS ORDERED: Vancomycin HCL 750 MG in NS 100 ML IV SCH (21:00)
--- NOTE | 2024-01-17 22:56 | NUR ---
ASSUMED CARE AT 1900 PT LAYING IN BED INTUBATED WITH FAMILY AT BEDSIDE. ALL THREE MEMBERS WERE APPROPRIATE AND SLOWLY LEFT BEDSIDE FOR THE NIGHT. PT IS SEDATED WITH PROPOFOL INFUSING AT 50MCG/KG/MIN AND KETAMINE INFUSING AT 2MG/KG/HR; RASS -2. VENT SETTINGS AC/VC 24/400/12/30%; RR 24; SPO2 >94%. AFEBRILE. HR 70-90'S. SBP 120'S. JEVITY INFUSING AT VIA OG 30ML/HR (GOAL) WITH 30ML FLUSH Q4HR. LAY IN PLACE AND DRAINING TO GRAVITY. PICC TO RUE PATENT. WOUND TO RT ELBOW REDRESSED D/T WEEPING. SEE SHIFT ASSESSMENT FOR FULL ASSESSMENT.
[2024-01-18] VITALS (24 sets, daily range): BP systolic 107–182; BP diastolic 51–87
[2024-01-18 04:34] LABS: Hematocrit 30.3 % (37.0-53.0); Hemoglobin 9.7 g/dL (13.5-17.5); Mean Corpuscular HGB 30.3 pg (26.0-34.0); Mean Corpuscular Volume 95 fL (80-100); Mean Platelet Volume 10.6 fL (9.1-12.4); Platelet Count 169 K/mm3 (150-400); RDW Coefficient Variation 13.6 % (11.7-14.2); RDW Standard Deviation 46.6 fL (35.1-46.3); White Blood Cell Count 10.01 K/mm3 (4.00-11.30)
[2024-01-18 04:53] LABS: Bun/Creatinine Ratio 25.3 (12.0-20.0); Calcium, Blood 8.5 mg/dL (8.5-10.1); Creatinine, Blood 0.95 mg/dL (0.60-1.20); Magnesium, Blood 2.9 mg/dL (1.6-2.4); Potassium, Blood 3.9 mmol/L (3.5-5.5)
--- NOTE | 2024-01-18 06:03 | NUR ---
END OF SHIFT SUMMARY NO ACUTE EVENTS OVERNIGHT. HE CONT TO BE SEDATED WITH PROPOFOL INFUSING AT 50MCG/KG/MIN AND KETAMINE INFUSING AT 2MG/KG/HR; CONT TO HAVE RASS OF -2. CONT TO BE ON VENT WITH SETTINGS AC/VC 24/400/12/30%; SCANT AMOUNT OF CLEAR SECREATIONS FROM ETT; RR 24; SPO2 >94%. HR 70-90'S. BP STABLE WITH SBP 120-130'S. JEVITY INFUSING AT GOAL VIA OG; NO BM THIS SHIFT. LAY IN PLACE AND DRAINING TO GRAVITY. PICC TO RUE AND POWERGLIDE TO LUE BOTH PATENT WITH DRESSING C/D/I. WOUND TO RT ELOW DRESSING CHANGED D/T SEROUS DRAINAGE. WILL REPORT TO AM RN WHEN AVAILABLE.
--- NOTE | 2024-01-18 08:00 | NUR ---
AM NOTE... ASSUMED CARE OF PT AT 0700. PT IS INTUBATED AND SEDATED. PROPOFOL IS RUNNING AT 50 MCG/KG/HR AND KETAMINE IS RUNNING AT 2 MG/KG/HR. PATIENT OPENS EYES IN RESPONSE TO VERBAL STIMULI AND IS ABLE TO SQEEUZE HANDS WHEN ASKED. ETT 8.0, 25 AT THE TEETH. VENT SETTINGS ARE ACVC 24/400/12/30% W/ SPO2 MAINTAINED >90% LUNG SOUNDS ARE DIMINISHED IN THE RLL, WHEEZING THROUGHOUT, RR IS 20. PATIENT IS IN SINUS ARRYTHMIA, SBP 120-130'S, HR 70-80'S. DEPENDENT EDEMA IN BILATERAL HANDS, SLIGHTLY WORSE IN THE RT HAND. 1+ PITTING EDEMA IN BILATERAL LOWER EXTREMITIES. CAP REFILL < 3 SECONDS. TUBE FEED WITH JEVITY, RUNNING AT 30ML/HR. ABDOMEN IS ROUND AND SOFT TO PALPATION, BOWEL TONES ARE HYPOACTIVE. TEMP LAY IS PATENT AND DRAINING LIGHT YELLOW URINE TO GRAVITY. PT HAS A SKIN TEAR ON RAUL THAT IS WEEPING. THE WOUND IS DRESSED WITH KERLIX AND A CHUX PAD HAS BEEN PLACED UNDERNEATH HIS ARM.
--- NOTE | 2024-01-18 10:24 | NUR ---
DR MONTE: PROVIDER AT BEDSIDE TO EVAL PT THIS AM. DISCUSSED NEED FOR GI PROPHYLAXIS PER VENT BUNDLE, ORDERS OBTAINED. FREE WATER FLUSH VIA OGT INCREASED R/T ELEVATED SODIUM ON AM LABS. CLARIFICATION FOR DESIRED PEEP ON VENT SETTINGS HAS ALSO BEEN OBTAINED, PEEP NOW AT 10 W/ NO PLANS FOR SBT THIS SHIFT. DENYS RT, AWARE OF THIS. NO OTHER CHANGES AT THIS TIME.
[2024-01-18] MEDS ORDERED: Pantoprazole Sodium 40 MG Injection IV SCH (10:25)
--- NOTE | 2024-01-18 18:21 | NUR ---
SHIFT SUMMARY.... PT REMAINS INTUBATED AND SEDATED. WE BEGAN TITRATING PROPOFOL DOWN AT [address] MONTE. PATIENT TOLERATED PROPOFOL AT 40 MG/KG/HR, UNLESS BEING REPOSITIONED. PT BEGAN REPORTING PAIN WHEN ASKED AND HIS SBP WAS IN THE 180'S. PT WAS GIVEN 25MCG OF FENTANYL AND PROPOFOL WAS INCREASED TO 45 MG/KG/HR, WHICH HE IS TOLERATING WELL. VENT SETTINGS WERE ADJUSTED AT [address] MONTE, ACVC 24/400/10/30% NO BM THIS SHIFT. TEMP LAY IS PATENT AND DRAINING URINE TO GRAVITY, URINE OUTPUT HAS INCREASED THROUGHOUT SHIFT. WEEPING FROM WOUND ON RT ARM HAS DECREASED THROUHOUT SHIFT. WILL CONTINUE TO MONITOR UNTIL REPORT IS GIVEN TO ONCOMING NURSE...
--- NOTE | 2024-01-18 19:48 | NUR ---
ASSUMPTION OF CARE NOTE ASSUMED CARE OF PATIENT AT 1900. REVIEVED REPORT FROM CECE GALLEGOS. SON AND CAREGIVER CURRENTLY AT BEDSIDE. PT IS INTUBATED AND SEDATED. PROP AT 45MCG/KG/HR. KETAMINE 2MG/KG/HR. VENT SETTINGS AC/VC 14/400/10 30%. ETT 8.0, 25 AT TEETH. PT AWAKENS TO VERBAL STIMULI AND CAN FOLLOW COMMANDS. PUPILS EQUAL AND REACTIVE TO LIGHT. LUNG SOUNDS CLEAR WITH WHEEZING AT TIMES. HR 76, SBP 160s. SPO2 96%. EDEMA AND REDNESS NOTED TO BILATERAL HANDS. SOFT RESTRAINTS TO BUE. PULSES PRESENT IN ALL EXTREMITIES. OGT IN PLACE AND PATENT. TF AT GOAL, 30ML/HR, FLUSH 200ML/Q4 HR. TEMP LAY PATENT AND DRAINING LIGHT YELLOW URINE TO GRAVITY.
[2024-01-19] VITALS (24 sets, daily range): BP systolic 108–180; BP diastolic 60–96
[2024-01-19 03:52] LABS: Hematocrit 30.7 % (37.0-53.0); Hemoglobin 9.7 g/dL (13.5-17.5); Mean Corpuscular HGB 30.4 pg (26.0-34.0); Mean Corpuscular HGB Conc 31.6 g/dL (31.5-36.5); Mean Corpuscular Volume 96 fL (80-100); Mean Platelet Volume 10.9 fL (9.1-12.4); Platelet Count 161 K/mm3 (150-400); RDW Coefficient Variation 13.8 % (11.7-14.2); RDW Standard Deviation 48.8 fL (35.1-46.3); Red Blood Cell Count 3.19 M/mm3 (4.30-5.90); White Blood Cell Count 8.27 K/mm3 (4.00-11.30)
[2024-01-19 06:04] LABS: Bun/Creatinine Ratio 22.6 (12.0-20.0); Calcium, Blood 8.6 mg/dL (8.5-10.1); Creatinine, Blood 0.84 mg/dL (0.60-1.20); Potassium, Blood 4.4 mmol/L (3.5-5.5)
--- NOTE | 2024-01-19 06:16 | NUR ---
SHIFT SUMMARY NO ACUTE CHANGES OVERNIGHT. VENT SETTINGS REMAIN AT AC/VC 14/400/10/30%. SPO2 LOW 90s. PT IS MODERATELY SEDATED, PT WAS RESPONSIVE TO VERBAL STIMULI FOR MOST OF THE SHIFT. PT IS ABLE TO FOLLOW COMMANDS AND COMMUNICATE WHEN HE IS IN PAIN. PRN FENTANYL GIVEN THIS SHIFT. PROPOFOL AT 45MCG/KG/MIN. KETAMINE AT 2MG/KG/HR.PT HAD PERIODS OF SBP 160s-170s THIS SHIFT. TEMP LAY REVEALED LOW TEMP READINGS, BEAR HUGGER USED TO BRING UP TEMPERATURE. TF CONTINUES AT GOAL RATE.
--- NOTE | 2024-01-19 07:36 | NUR ---
CARE ASSUMPTION DURING BEDSIDE SHIFT REPORT W ABRIL GALLEGOS THE PT IS AWAKE AND COMMUNICATING W STAFF. PT IS VERY ANXIOUS, VERY DIAPHORETIC AND REPORTING SEVERE DISOMFORT IN HIS ABDOMEN. BP'S SOFT W MAP >65. MONITOR SHOWING ST 140'S-150. RR IN THE 40'S. PT W MILD MOTTLING IN BLE'S. D5W W BICARB INFUSING AT 100ML/HR. PROTONIX GTT INFUSING AT 10ML/HR. MAG SULFATE AT 100ML/HR. DR. DE LA ROSA AT BEDSIDE ASSESSING THE PT. PLAN TO INTUBATE THE PT.
[2024-01-19] MEDS ORDERED: Furosemide 10 MG / ML 2ML Vial IV ONE (08:40)
--- NOTE | 2024-01-19 08:40 | NUR ---
ASSUMED CARE / DR DE LA ROSA: REPORT RECEIVED FROM DOMINIQUE Cam RN. ASSUMED CARE OF THIS PT AT APPROX 0700. ON ASSESSMENT, THE PT IS RESTING QUIETLY, SEDATED W/ PROPOFOL & KETAMINE PER EMAR. HE OPENS EYES TO VERBAL STIMULUS & IS ABLE TO FOLLOW SIMPLE DIRECTIONS AT THAT TIME. LS WHEEZING, DIM IN BASES. PT ON VENT W/ SETTINGS: AC/VC 14/400/10/30% W/ O2 SATS > 91% ON AVG. MONITOR SHOWS SA W/ HR 70-80s, HTN INCREASED W/ SBP 170s AT TIMES OF INCREASED RASS SCORE. OGT IN PLACE W/ JEVITY INFUSING AT GOAL RATE, NO S/SX INTOLERANCE NOTED. TEMP LAY PATENT/ DRAINING YELLOW URINE. SKIN CONDITION OVERALL FRAGILE, ECCHYMOTIC. Q2H REPOSITIONING TO MAINTAIN SKIN INTEGRITY. PROVIDER AT BEDSIDE THIS AM TO EVAL PT. HE HAS LOWERED PEEP ON VENT FROM 10 TO 8. ONE TIME LASIX DOSE & ECHO ORDERED FOR TODAY. HE HAS PROVIDED AN UPDATE TO THE FAMILY MEMBERS AT BEDSIDE. NO OTHER CHANGES AT THIS TIME. WILL CONTINUE TO MONITOR & UPDATE NEEDED.
[2024-01-19 09:10] LABS: Vancomycin, Trough 19.6 ug/mL (5.0-10.0)
[2024-01-19] MEDS ORDERED: Docusate Sodium 100 MG UDC PT PRN (14:15)
[2024-01-19] MEDS ORDERED: Bisacodyl 10 MG Supp PR PRN (14:15)
[2024-01-19] MEDS ORDERED: Vancomycin HCL 1,250 MG in NS 250 ML IV SCH (15:00)
--- NOTE | 2024-01-19 16:15 | NUR ---
TUBE FEEDING: PER DIETARY, TUBE FEED FORMULA & GOAL RATE HAS BEEN CHANGED THIS EVENING. NEW TUBE FEEDS INITIATED PER ORDERS AT 25 ML/HR AT APPROX 1615. BOWEL CARE ALSO INITIATED THIS EVENING FOR NO BM x3 DAYS.
[2024-01-19 16:16] LABS: Albumin, Blood 2.6 g/dL (3.4-5.0); Albumin/Globulin Ratio 0.8 (0.8-1.8); Bilirubin, Total 0.3 mg/dL (0.1-1.0); Bun/Creatinine Ratio 18.6 (12.0-20.0); Calcium, Blood 8.5 mg/dL (8.5-10.1); Creatinine, Blood 0.91 mg/dL (0.60-1.20); Globulin, Blood 3.4 g/dL (2.2-4.0); Potassium, Blood 4.8 mmol/L (3.5-5.5)
--- NOTE | 2024-01-19 18:40 | NUR ---
SHIFT SUMMARY: NO ACUTE CHANGES SINCE PRIOR UPDATES. PT REMAINS LIGHTLY SEDATED W/ PRECEDEX, OPENS EYES TO VERBAL STIMULI, ANSWERS YES/ NO QUESTIONS & FOLLOWS DIRECTIONS. ABLE TO USE COMMUNICATION BOARD OR WRITE PRN. PT HAS TOLERATED AN SBT WELL THIS EVENING, ON SPONTANEOUS VENT SETTINGS W/ PS 7, PEEP 5 & 35% FIO2 FOR APPROX 2 HRS BEFORE BECOMING INCREASINGLY TIRED. DR DE LA ROSA HAS DISCUSSED POC W/ THE PT's FAMILY & THEY WOULD LIKE HIM TO REST TONIGHT & BE EXTUBATED TOMORROW MID-MORNING, THE PT IS GENERALLY MORE SYMPTOMATIC OF HIS COPD IN THE EARLY MORNINGS. NOW BACK ON AC/VC 14/400/5/35% W/ O2 SATS > 90%. MONITOR SHOWS SR W/ HR 70-80s, BP STABLE. TUBE FEEDS INFUSING PER NEW ORDERS, NO S/SX INTOLERANCE NOTED. LAY PATENT/ DRAINING YELLOW URINE. SKIN CONDITION OVERALL FRAGILE, Q2H REPOSITIONING TO MAINTAIN SKIN INTEGRITY. WILL CONTINUE TO MONITOR & UPDATE NEEDED.
[2024-01-19] MEDS ORDERED: Lactobacil 2-S.Thermo-Bifido 1 1 Cap PO SCH (21:00)
[2024-01-20] VITALS (23 sets, daily range): BP systolic 122–183; BP diastolic 54–91
[2024-01-20 03:24] LABS: BASOPHILS ABSOLUTE AUTO 0.02 K/mm3 (0.00-0.23); BASOPHILS PERCENT AUTO 0 % (0-2); EOSINOPHILS PERCENT AUTO 1 % (0-6); Hematocrit 32.2 % (37.0-53.0); Hemoglobin 10.2 g/dL (13.5-17.5); IMMATURE GRAN ABSOLUTE AUTO 0.16 K/mm3 (0.00-0.10); IMMATURE GRAN PERCENT AUTO 2 % (0-1); LYMPHOCYTES ABSOLUTE AUTO 1.67 K/mm3 (0.84-5.20); LYMPHOCYTES PERCENT AUTO 18 % (21-46); MONOCYTES ABSOLUTE AUTO 0.98 K/mm3 (0.16-1.47); MONOCYTES PERCENT AUTO 10 % (4-13); Mean Corpuscular HGB 29.7 pg (26.0-34.0); Mean Corpuscular HGB Conc 31.7 g/dL (31.5-36.5); Mean Corpuscular Volume 94 fL (80-100); Mean Platelet Volume 10.3 fL (9.1-12.4); NEUTROPHILS ABSOLUTE AUTO 6.47 K/mm3 (1.96-9.15); NEUTROPHILS PERCENT AUTO 69 % (41-73); Platelet Count 164 K/mm3 (150-400); RDW Coefficient Variation 13.7 % (11.7-14.2); Red Blood Cell Count 3.43 M/mm3 (4.30-5.90)
[2024-01-20 03:50] LABS: Bun/Creatinine Ratio 23.7 (12.0-20.0); Calcium, Blood 8.7 mg/dL (8.5-10.1); Creatinine, Blood 0.76 mg/dL (0.60-1.20); Phosphorus, Blood 3.2 mg/dL (2.5-4.9); Potassium, Blood 4.3 mmol/L (3.5-5.5)
--- NOTE | 2024-01-20 05:42 | NUR ---
SHIFT SUMMARY: NO ACUTE CHANGES OVERNIGHT; PT REMAINS INTUBATED AND SEDATED WITH SETTINGS AC/VC 14/400/5/35%. PT HAS BEEN COMPLIANT WITH THE VENT THROUGHOUT THE SHIFT; SPO2 94<. PT HAS BEEN LIGHTLY SEDATED WITH PRECEDEX @ 0.4 MCG. PT WAKES EASILY TO VERBAL STIMULI AND IS ABLE TO FOLLOW DIRECTIONS, MOVE ALL EXTREMITIES AND NOD HEAD YES/NO TO QUESTIONS. LUNGS CLEAR WITH DIM BASES. PT SR ON MONITOR WITH HR 60-70, SBP 150'S. OGT IN PLACE WITH VHP @ 35 MLS/HR WITH A GOAL OF 50 MLS/HR. ABD MILDLY DISTENDED, SOFT. TEMP LAY IN PLACE, PATENT AND DRAINING TO GRAVITY; URINE YELLOW, CLEAR. DEPENDENT EMDEMA IN BUE, SCATTERED BRUSING NOTED WELL. VSS THROUGHOUT THE SHIFT. WILL REPORT OFF TO ONCOMING RN.
--- NOTE | 2024-01-20 11:15 | NUR ---
PT EXTUBATED TO BIPAP 8/ 40%. PT IS A/O TO PERSON, PLACE, FAMILY AND SITUATION. ANSWERING QUESTIONS APPROPRIATELY. TOLERATING BIPAP WELL. NO SIGN OF DISTRESS. FAMILY AT BEDSIDE.
--- NOTE | 2024-01-20 17:53 | NUR ---
SUMMARY PT EXTUBATED AT 1109. WORE BIPAP FOR A FEW HOURS, NOW ON 4L NC. CLEARING SECRETIONS WITHOUT ISSUE. PASSED JACOB SWALLOW EVAL AND HAS BEEN SIPPING WATER. PT IS A/O TO PERSON PLACE, FAMILY, EVENT, YEAR AND MONTH. CONVERSING WITH FAMILY AND EVEN SINGING LYRICS TO SONGS. DENIES PAIN. DR. DE LA ROSA WANTS PT TO WEAR BIPAP WHILE SLEEPING TONIGHT. NO SIGN OF DISTRESS.
--- NOTE | 2024-01-20 20:30 | NUR ---
ASSUMPTION OF CARE ASSUMED CARE OF PATIENT AT 1900. VISITORS AT BEDSIDE. RT IN ROOM FOR BREATHING TREATMENT. PT A&Ox4. PT CHEEFUL AND EMOTIONAL AT TIMES. LUNG SOUNDS CLEAR AND DIM. SPO2 94% ON 5L NC. PT DENIES ANY PAIN. HR 80s. BP STABLE. PULSES PRESENT IN ALL EXTREMITIES. PATIENT'S SISTER BROUGHT HIM IN MASHED POTATES AND PT ATE 100% OF IT AND TOLERATED IT WELL. PT UP TO BSC WITH GAIT BELT. PT HAD A BM. OTTONIEL LAY IN PLACE PATENT. BED LOWERED AND CALL LIGHT IN REACH.
[2024-01-20] MEDS ORDERED: Gabapentin 250 MG/5 ML ORAL SYRINGE PO SCH (21:21)
[2024-01-20] MEDS ORDERED: Lisinopril 10 MG Tab PO ONE (23:10)
[2024-01-21] VITALS (15 sets, daily range): BP systolic 142–193; BP diastolic 56–95
--- NOTE | 2024-01-21 06:10 | NUR ---
SHIFT SUMMARY PT WAS AWAKE FOR MAJORITY OF THE NIGHT. PT ON 5L NC, SPO2 95-100% FOR MAJORITY OF THE NIGHT. PT MOOD VERY HAPPY. AT TIMES PT CROSSED NURSE/PATIENT BOUNDRIES AND PT RECEPTIVE TO REDIRECTION. A&Ox4, LUNG SOUNDS CLEAR, OCCASIONAL WHEEZING ON RIGHT SIDE. SBP UP TO 180s, LISSETH ALMAGUER NOTIFIED AND GIVEN ORDERS FOR LISINOROL, AFTER SBP 150-160s FOR MAJORITY OF SHIFT. HR 80s. LAY D/C THIS SHIFT, PT HAD 2 LARGE BM. BED LOWERED CALL LIGHT IN REACH.
[2024-01-21] MEDS ORDERED: MethylPREDNISolone Sod Succ 40 MG VIAL IV SCH ×2 (08:00→09:00)
[2024-01-21] MEDS ORDERED: Lisinopril 10 MG Tab PO SCH (09:00)
[2024-01-21] MEDS ORDERED: Gabapentin 300 MG Cap PO SCH (09:00)
[2024-01-21] MEDS ORDERED: Metoprolol Succinate 50 MG TABCR PO SCH (10:00)
[2024-01-21] MEDS ORDERED: HydrALAZINE HCl 20 MG / ML 1ML Vial IV PRN (13:30)
--- NOTE | 2024-01-21 14:21 | NUR ---
TRANSFER NOTE: FRANKIE ARRIVED TO THE UNIT VIA WHEELCHAIR ACCOMPANIED BY HIS SISTER LALITA. WAS ABLE TO SELF TRANSFER WITH [employer] SD ANALYST ASSISTANCE TO BED. CHOSE TO SIT UP IN ON SIDE OF BED. CALL LIGHT PROVIDED. NO SIGNS OR SYMPTOMS OF DISTRESS. PT ARRIVED DID AN EVAL, WELL PATIENT'S SON.
--- NOTE | 2024-01-21 14:46 | NUR ---
Pt transferred to medical floor rm# [id number] at approximately 1350. Report given to RN assuming care. Sister accompanied pt upstairs, all personal belongings sent with patient to new room. No acute events this shift.
--- NOTE | 2024-01-21 17:27 | NUR ---
SHIFT SUMMARY: NO EVENTS OR CHANGES WITH PATIENT SINCE TRANSFERRING TO THE UNIT. HE HAS FAMILY AT BEDSIDE, CALL LIGHT WITHIN REACH, NO SIGNS OR SYMPTOMS OF DISTRESS, PLAN OF CARE ONGOING.
[2024-01-22 05:13] VITALS: BP 159/86
[2024-01-22 05:47] LABS: BASOPHILS ABSOLUTE AUTO 0.02 K/mm3 (0.00-0.23); BASOPHILS PERCENT AUTO 0 % (0-2); EOSINOPHILS ABSOLUTE AUTO 0.17 K/mm3 (0.00-0.68); EOSINOPHILS PERCENT AUTO 2 % (0-6); Hematocrit 33.5 % (37.0-53.0); Hemoglobin 10.5 g/dL (13.5-17.5); IMMATURE GRAN ABSOLUTE AUTO 0.12 K/mm3 (0.00-0.10); IMMATURE GRAN PERCENT AUTO 1 % (0-1); LYMPHOCYTES ABSOLUTE AUTO 1.77 K/mm3 (0.84-5.20); LYMPHOCYTES PERCENT AUTO 16 % (21-46); MONOCYTES ABSOLUTE AUTO 1.33 K/mm3 (0.16-1.47); MONOCYTES PERCENT AUTO 12 % (4-13); Mean Corpuscular HGB 29.6 pg (26.0-34.0); Mean Corpuscular HGB Conc 31.3 g/dL (31.5-36.5); Mean Corpuscular Volume 94 fL (80-100); Mean Platelet Volume 10.7 fL (9.1-12.4); NEUTROPHILS ABSOLUTE AUTO 7.74 K/mm3 (1.96-9.15); NEUTROPHILS PERCENT AUTO 69 % (41-73); Platelet Count 169 K/mm3 (150-400); RDW Coefficient Variation 13.2 % (11.7-14.2); RDW Standard Deviation 45.5 fL (35.1-46.3); Red Blood Cell Count 3.55 M/mm3 (4.30-5.90); White Blood Cell Count 11.15 K/mm3 (4.00-11.30)
--- NOTE | 2024-01-22 05:56 | NUR ---
END OF SHIFT SUMMARY PT A&OX4, COOPERATIVE WITH CARE. ON 4L O2 VIA NC, MONITORED ON CONT PULSE OX. PT ORIGINALLY REFUSED BIPAP BUT HAD SEVERAL BRIEF EPISODES OF DESAT TO 85% WHILE SLEEPING. PT THEN AGREEABLE TO WEAR BIPAP AND TOLERATED FOR REST OF NIGHT. PT VOIDING, HOWEVER BLADDER DISTENTION PALPABLE. BLADDER SCAN COMPLETED SHOWING VOLUME OF 730ML AFTER 200ML VOID. ORDERS RECD FOR STRAIGHT CATH X1 WITH REPEAT BLADDER SCAN IN 6 HOURS. 14F COUDE STRAIGHT CATH COMPLETED, 750ML CLEAR URINE OUTPUT. PT TOLERATED WELL. NO OTHER EVENTS DURING NIGHT.
[2024-01-22] MEDS ORDERED: Pantoprazole Sodium 40 MG Tab PO SCH (06:00)
[2024-01-22 06:07] LABS: Bun/Creatinine Ratio 22.5 (12.0-20.0); Calcium, Blood 8.9 mg/dL (8.5-10.1); Creatinine, Blood 0.76 mg/dL (0.60-1.20); Phosphorus, Blood 3.6 mg/dL (2.5-4.9); Potassium, Blood 3.6 mmol/L (3.5-5.5)
[2024-01-22 07:16] VITALS: BP 175/71
--- NOTE | 2024-01-22 10:06 | NUR ---
BLADDER SCANNED PATIENT AT 0930. HE HASN'T VOIDED SINCE LAST NIGHT WHEN HE WAS BLADDER SCANNED AND STRAIGHT CATHETHERIZED. REPEAT BLADDER SCAN WAS 346. NOTIFIED DR. AYERS SHE ADVISES TO HAVE PATIENT USE URINAL AND REPEAT IN 2 HOURS; 1130. PATIENT ATTEMPTING TO USE URINAL NOW.
[2024-01-22 11:55] VITALS: BP 173/62
--- NOTE | 2024-01-22 12:23 | NUR ---
THIS RN PROVIDING DAY-SHIFT BREAK COVERAGE FOR PRIMARY RN.
[2024-01-22 15:59] VITALS: BP 152/91
--- NOTE | 2024-01-22 17:57 | NUR ---
SHIFT SUMMARY: NO EVENTS OR CHANGES WITH THE PATIENT THROUGHOUT THE SHIFT. HE WORKED WITH PT AND OT TODAY AND DID WELL. OXYGEN NEEDS SEEM TO BE IMPROVING; PATIENT STATES FEELING BETTER. HE IS ON 4 L N/C OXYGEN TO MAINTAIN OXYGEN LEVELS GREATER THAN 90% AND BIPAP AT NIGHT. HE NEEDS TO BE ENCOURAGED TO VOID AND VOIDS BETTER STANDING. HE IS IN BED, CALL LIGHT WITHIN REACH, SON AT BEDSIDE, NO SIGNS OR SYMPTOMS OF DISTRESS, PLAN OF CARE ONGOING.
[2024-01-22 19:20] VITALS: BP 169/88
[2024-01-23 02:59] VITALS: BP 135/66
--- NOTE | 2024-01-23 06:43 | NUR ---
END OF SHIFT SUMMARY PT A&OX4. REPORTS IMPROVEMENT IN SOB AT REST AND EXERTION. REMAINED ON CONT PULSE OX AND 4L NC, PTS BASELINE IS 3L. AMBULATING WELL TO BR WITH 1XA AND FWW. NO ACUTE EVENTS OVERNIGHT.
[2024-01-23 07:47] VITALS: BP 153/66
--- NOTE | 2024-01-23 16:43 | NUR ---
NO ACUTE CHANGES PT IS DOING WELL UP IN CHAIR MOST OF THE DAY. PT DENIED ANY PAIN AND WWAS ABLE TO MAKE ALL NEEDS KNOWN. PT HAD VISITORS TODAY AND WAS IN GOOD SPIRITS. CALL LIGHT IS WITHIN REACH WILL CONTINUE TO MONITOR.
[2024-01-23 19:37] VITALS: BP 134/65
[2024-01-24 05:17] VITALS: BP 155/81
--- NOTE | 2024-01-24 06:01 | NUR ---
SUMMARY: PT A/OX4, CALLS APPROPRIATELY TO SPECIFY NEEDS AND IS PLEASANT AND COOPERATIVE W/CARE. HE'S 1PA W/FWW OOB D/T DYSPNEA W/EXERTION BUT HE REPORTS BREATHING AND STRENGTH ARE "BETTER TONIGHT THAN YEARS". PT DENIED NEEDING PRN INHALER AND RECEIVED NEBS PER RT PER EMAR. HE SLEPT MAJORITY OF NOCTE AND DENIED COMPLAINTS. SPO2 TITRATED DOWN TO 2L VIA NC W/SPO2 REMAINING WNL. NO ACUTE CHANGES, VSS/AFEBRILE. POSSIBLE D/C TODAY. WCTM AND REPORT TO DAY RN
[2024-01-24 07:16] VITALS: BP 155/74
[2024-01-24] MEDS ORDERED: PredniSONE 20 MG Tab PO SCH (09:00)
[2024-01-24 16:05] VITALS: BP 163/74
--- NOTE | 2024-01-24 17:03 | NUR ---
PT AOX4 AND COOPERATIVE OF CARE. NO ACUTE CHANGES AND PT REPORTS HE IS DOING BETTER EVERYDAY. PT ABLE TO AMBULATE WITH WALKER A STANDBY AND USES CALL LIGHT APPROPRIATELY. NO DISTRESS NOTED WILL CONTINUE TO MONITOR.
[2024-01-24 19:21] VITALS: BP 174/93
[2024-01-25 03:14] VITALS: BP 139/53
--- NOTE | 2024-01-25 03:44 | NUR ---
SHIFT SUMMARY PT. IS A&O X4, PLEASANT, AND COOP WITH CARE. O2 VIA NC 2L, CONT.PULSE OX 94-96%. NO COUGH NOTED DURING THIS SHIFT. PT. DENIES PAIN. PT. ABLE TO AMBULATE WITH FWW TO THE RESTROOM WITH STANDBY ASSISTANCE. PT. LOOKING FORWARD OF THE [facility] EVAL TODAY AND POSSIBLE D/C. NO ACUTE EVENTS/DISTRESS DURING THIS SHIFT. WILL HAND OFF TO THE INCOMING SHIFT NURSE.
[2024-01-25 07:40] VITALS: BP 167/72
[2024-01-25 15:48] VITALS: BP 177/79
--- NOTE | 2024-01-25 18:07 | NUR ---
SHIFT SUMMARY PT SLEPT HARD THROUGH BREAKFAST BUT THEN WOKE UP AND ASSISTED TO CHAIR AND HAS BEEN IN CHAIR SINCE. SISTER AT BEDSIDE MOST OF THE DAY. HAS HAD NO RESP DISTRESS NOTED. CONTINUOUS PULSE OX ON WITH NO ALARMS NOTED. PLANS TO GO TO [facility] FOR REHAB IF ACCEPTED.
[2024-01-25 19:29] VITALS: BP 141/79
[2024-01-26 04:07] VITALS: BP 158/76
--- NOTE | 2024-01-26 04:28 | NUR ---
SHIFT SUMMARY PER PT.REPORT, PT. IMPROVING IN HEALTH DAILY. PT AMBULATES WITH FWW TO THE RESTROOM/ STANDBY ASSISTANCE. PT.DENIES PAIN DURING THIS SHIFT, LS WHEEZING ON LLL, CLEAR UL'S PER AUSCULTATION. SOME COUGH/HACKING" NOTED DURING THIS SHIFT WHEN CHANGING POSITION IN BED. O2 AT 3L VIA NC, O2 SATS/CONTINUOUS MONITORING 92-94% DURING THIS SHIFT. NO ACUTE EVENTS/DISTRESS NOTED DURING THIS SHIFT. PT.AWAITING FOR APPROVAL TO [facility]. PT.HAD HIS CAREGIVER AND HER DOG BY THE BEDSIDE AT . PT. IS CHEERFUL IN MOOD, PLEASANT, COOP WITH CARE.CALL LIGHT IN REACH, BED AT THE LOWEST POSITION. WILL HAND OFF TO THE INCOMING SHIFT NURSE.
[2024-01-26 07:40] VITALS: BP 167/66
[2024-01-26 15:30] VITALS: BP 148/66
--- NOTE | 2024-01-26 18:09 | NUR ---
SHIFT SUMMARY PT ON ROOM AIR WHILE LAYING IN BED. WHEN HE FELL ASLEEP SATS AT 89%. WITH ACTIVITY HE DROPPED BELOW 87% AND GOT INCREASED SOB REQUIRING O2 TO BE REPLACED. REMAINS IN A JOVIAL MOOD. SISTER AND CAREGIVER IN TO VISIT.
[2024-01-26 20:43] VITALS: BP 146/81
[2024-01-27 05:05] VITALS: BP 131/60
[2024-01-27 08:01] VITALS: BP 176/82
--- NOTE | 2024-01-27 08:02 | NUR ---
SHIFT SUMMARY PT IS A&OX4, PLEASANT AND APPRECIATIVE OF CARES. VSS ON 2L NC. DENIES PAIN. X1 ASSIST WITH FWW. VOIDING IN BR, ONE BM THIS SHIFT. TOLERATING A REGULAR DIET. BED IN LOWEST POSITION, CALL LIGHT WITHIN REACH. PT IS LOOKING FORWARD TO DISCHARGING TODAY.
[2024-01-27 15:42] VITALS: BP 154/79
[2024-01-27] MEDS ORDERED: Docusate S50 MG/5 ML PO (16:43)
[2024-01-27] MEDS ORDERED: PROTONIX40 M1 PO (16:44)
[2024-01-27] MEDS ORDERED: LACT PO (16:45)
[2024-01-27] MEDS ORDERED: PRED5 PO (17:03)
--- NOTE | 2024-01-27 18:09 | NUR ---
DISCHARGE SUMMARY: PT DISCHARGED HOME WITH HOME HEALTH. PICC LINE TAKEN OUT BY MANAGEMENT TRAINEE PROGRAM STORESEL STEIN GLIDE TAKEN OUT BY TESS GALLEGOS. PT AND PT DAUGHTER EDUCATED ON DISCHARGE PLAN AND MEDICATIONS. PT/DAUGHTER VU. ASSISTED PT WITH GETTING DRESSED. PT HAD OWN O2 PORTABLE TANK. PT HOOKED UP TO O2 TANK AND TRANSPORTED TO [facility] VIA WC BY [facility]. BELONGINGS SENT WITH PT.
[2024-01-29] MEDS ORDERED: NICO21TP TOP (10:34)
== END 2024-01-27 17:30 | disposition home health service (06) | DRG 870 ==
LOC: ER 10:37 → ICUE 12:40 → PCU 12:40 → MEDS 12:40 → PCU 14:17 → ICUE 18:56 → MEDS 01-21 13:46
PROVIDERS: Family Medicine; Internal Medicine; Internal Medicine Critical Care Medicine; Student in an Organized Health Care Education/Training Program; ADMIT Internal Medicine
PROC: 5A09357 Assistance with Respiratory Ventilation, Less than 24 Consecutive Hours, Continuous Positive Airway Pressure (ICD-10-PCS; 2024-01-14)
PROC: 4A033R1 Measurement of Arterial Saturation, Peripheral, Percutaneous Approach (ICD-10-PCS; 2024-01-14)
PROC: 0T9B70Z Drainage of Bladder with Drainage Device, Via Natural or Artificial Opening (ICD-10-PCS; 2024-01-14)
PROC: 5A1955Z Respiratory Ventilation, Greater than 96 Consecutive Hours (ICD-10-PCS; principal; 2024-01-16)
PROC: 0DH67UZ Insertion of Feeding Device into Stomach, Via Natural or Artificial Opening (ICD-10-PCS; 2024-01-16)
PROC: 0BH17EZ Insertion of Endotracheal Airway into Trachea, Via Natural or Artificial Opening (ICD-10-PCS; 2024-01-16)
PROC: 02HV33Z Insertion of Infusion Device into Superior Vena Cava, Percutaneous Approach (ICD-10-PCS; 2024-01-17)
PROC: 3E03329 Introduction of Other Anti-infective into Peripheral Vein, Percutaneous Approach (ICD-10-PCS; 2024-01-19)
DX: A41.9 Sepsis, unspecified organism (principal); G92.8 Other toxic encephalopathy; J96.21 Acute and chronic respiratory failure with hypoxia; J18.9 Pneumonia, unspecified organism; I50.31 Acute diastolic (congestive) heart failure; J96.22 Acute and chronic respiratory failure with hypercapnia; J44.1 Chronic obstructive pulmonary disease with (acute) exacerbation; J44.0 Chronic obstructive pulmonary disease with (acute) lower respiratory infection; E87.1 Hypo-osmolality and hyponatremia; N17.9 Acute kidney failure, unspecified; E87.0 Hyperosmolality and hypernatremia; E87.20 Acidosis, unspecified; Z66 Do not resuscitate; R65.20 Severe sepsis without septic shock; I25.10 Atherosclerotic heart disease of native coronary artery without angina pectoris; D64.9 Anemia, unspecified; F17.210 Nicotine dependence, cigarettes, uncomplicated; Z99.81 Dependence on supplemental oxygen; F10.90 Alcohol use, unspecified, uncomplicated; I11.0 Hypertensive heart disease with heart failure; R91.1 Solitary pulmonary nodule; Z92.3 Personal history of irradiation; Z79.82 Long term (current) use of aspirin; Z79.2 Long term (current) use of antibiotics; Z79.811 Long term (current) use of aromatase inhibitors; Z79.899 Other long term (current) drug therapy; I25.2 Old myocardial infarction; Z98.890 Other specified postprocedural states
CPT/HCPCS: 0241U; 31500; 31720; 36415; 36569; 36600; 71045; 71260; 80047; 80048; 80053; 80202; 81001; 82803; 82947; 83605; 83735; 83880; 84100; 84145; 84484; 85014; 85025; 85027; 85379; 87040; 87070; 87086; 87205; 93005; 93010; 93306; 94002; 94003; 94640; 94644; 94645; 94660; 94664; 94762; 96361; 96365-59; 96375-59; 97110; 97116; 97162; 97165; 97530; 97535; 99285-25; A9270; C1751; C9113; J0360; J0692; J1650; J1940; J2060; J2270; J2310; J2543; J2704; J2919; J3010; J3370; J3475; J7030; J7040; J7050; J7060; J7512; Q9967

== ENCOUNTER 2024-02-05 14:28 | Emergency (ER) | payer OTHER ==
[~2024-02-05] VITALS: Ht 177.8 cm; Wt 74.8 kg
[~2024-02-05 14:28] MED LIST changes: +Docusate S50 MG/5 ML PO; +NICO21TP TOP; +PROTONIX40 M1 PO
[2024-02-05 15:18] VITALS: BP 144/68
== END 2024-02-05 16:32 | disposition home or self-care (01) ==
LOC: ER 14:28
DX: I82.611 Acute embolism and thrombosis of superficial veins of right upper extremity (principal); Z79.899 Other long term (current) drug therapy; Z79.82 Long term (current) use of aspirin; Z79.52 Long term (current) use of systemic steroids; J44.9 Chronic obstructive pulmonary disease, unspecified; I25.2 Old myocardial infarction
CPT/HCPCS: 93971; 99283-25

== ENCOUNTER 2024-02-19 12:38 | Emergency (ER) | payer OTHER ==
[~2024-02-19] VITALS: Ht 177.8 cm; Wt 74.8 kg
[2024-02-19 12:44] VITALS: BP 145/81
== END 2024-02-19 14:04 | disposition home or self-care (01) ==
LOC: ER 12:38
DX: M79.621 Pain in right upper arm (principal); J44.9 Chronic obstructive pulmonary disease, unspecified; I25.2 Old myocardial infarction; Z79.52 Long term (current) use of systemic steroids; Z79.82 Long term (current) use of aspirin; Z79.899 Other long term (current) drug therapy
CPT/HCPCS: 93971; 99283-25